=== PATIENT | male | born 1980 | race Caucasian/White ===

== ENCOUNTER 2021-01-08 09:33 | Emergency (ER) | payer SELFPAY ==
[2021-01-08 09:35] VITALS: BP 149/92; PULSE 68; RESP 19; TEMP 36.8; O2SAT 99; BMI 28.6
--- NOTE | 2021-01-08 09:56 | HMH.EDUTC ---
[facility] [place] Disposition Clinical Impression: Acute maxillary sinusitis Qualifiers: Recurrence: non-recurrent Qualified Code(s): J01.00 - Acute maxillary sinusitis, unspecified Otitis Qualifiers: Laterality: right Qualified Code(s): H66.91 - Otitis media, unspecified, right ear Disposition: Home, Self-Care Condition on Discharge: Good Instructions: Sinusitis, DI for Sinusitis, Middle Ear Infection, Sinusitis (Alternative Therapy) Additional Instructions: Start antibiotic patient to take as ordered for a full length of time even if you feel better. Sinus infections do not get better overnight. It may take 2-3 days to notice much improvement so be sure to use conservative measures as discussed for symptoms. Flonase 1 spray each nostril daily to help with nasal congestion, sinus and ear pressure/information Increase fluids Humidifier/vaporizer as needed Tylenol and ibuprofen as needed for fever or pain. If symptoms do not improve or get worse return or be seen in the ER Follow-up with primary care this week Start antibiotic as soon as possible and be sure to take as ordered for full length of time even though he should start feeling better in 24-48 hours. Tylenol or Motrin as needed for pain or fever Encourage fluids, water, Gatorade, Powerade, Pedialyte if /toddler/child Warm compresses often helps when placed over ear Return immediately for new or worsening symptoms no noticeable improvement in 48-72 hours and in 10-14 days to ensure the ears are return to baseline. Follow-up with primary care Prescriptions: Fluticasone Propionate [Flonase 50mcg nasal spray 16gm] 1 spr NS DAILY 14 Days #9.9 ml Transmission Status: Pending to [id number] predniSONE [Prednisone 20mg Tab] 20 mg PO BID #10 tab Transmission Status: Pending to [id number] Azithromycin [Zithromax 250mg tab] 250 mg PO DIRECTED #6 tab Transmission Status: Pending to [id number] Referrals: Provider,Referral, [Primary Care Provider] - Time of Disposition: 10:07 Medical Decision Making - Rajesh Inquiry Pt receiving controlled substance: No Vital Signs: 01/08/21 09:35 Temperature 98.2 F Temperature Source Oral Pulse Rate [Right Brachial] 68 Respiratory Rate 19 Blood Pressure [Right Arm] 149/92 H Blood Pressure Mean [Right Arm] 111 Blood Pressure Source [Right Arm] Automatic Cuff Blood Pressure Position [Right Arm] Sitting 02 Sat by Pulse Oximetry 99 Oxygen Delivery Method Room Air [facility] [place] HPI - General Chief complaint: Urgent [facility] Stated complaint: congestion, cough Time Seen by Provider: 01/08/21 10:00 Mode of Arrival: Ambulatory Source of Information: Patient Limitations: No Limitations Description of Symptoms (Recalled from Triage Doc. by RN): PATIENT C/O CHEST CONGESTION, COUGH WITH YELLOW MUCOUS, AND SOA X 1 WEEK HEENT Symptoms (Recalled from RN notes): Yes Resp Symptoms (Recalled from RN notes): Yes Skin Symptoms (Recalled from RN notes): No MS Symptoms (Recalled from RN notes): No Functional Status (Recalled from RN notes): WNL - History of Present Illness Provider Complaint: 40 yr old male presents for cough,soa, sinus congestion, yellow/green drainage and tiredness. pt states he had covid about 8 wks ago. - Related Data Previous Rx's Medication Instructions Recorded Azithromycin [Zithromax 250mg 250 mg PO DIRECTED #6 tab 01/08/21 tab] Fluticasone Propionate [Flonase 1 spr NS DAILY 14 Days #9.9 ml 01/08/21 50mcg nasal spray 16gm] predniSONE [Prednisone 20mg 20 mg PO BID #10 tab 01/08/21 Tab] Allergies Allergy/AdvReac Type Severity Reaction Status Date / Time cephalexin [From Keflex] Allergy Verified 12/03/18 11:00 - Worker's Comp Is this a Worker's Comp case?: No 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
[2021-01-08 10:09] VITALS: BP 149/92; PULSE 68; RESP 19; TEMP 36.8; O2SAT 99
== END 2021-01-08 10:12 | disposition home or self-care (01) ==
PROVIDERS: Emergency Provider Nurse Practitioner Family
DX: J01.00 Acute maxillary sinusitis, unspecified; I10 Essential (primary) hypertension; F17.210 Nicotine dependence, cigarettes, uncomplicated
CPT/HCPCS: 99202; G0463

== ENCOUNTER 2023-01-20 10:34 | Emergency (ER) | payer OTHER, SELFPAY ==
[2023-01-20 11:00] VITALS: PULSE 83; RESP 18; TEMP 37; O2SAT 98; BMI 30.9
[2023-01-20 11:26] LABS: UTC Strep Screen (Rapid) Negative (Negative)
[2023-01-20 11:27] LABS: UTC Influenza A Antigen Negative (Negative); UTC Influenza B Antigen Negative (Negative)
--- NOTE | 2023-01-20 11:35 | EXP.UTC ---
Discharge Plan Disposition Patient Disposition: Home, Self-Care Condition: Good Prescriptions Prescriptions: New amoxicillin [amoxicillin] 500 mg tablet 500 mg PO BID 10 Days Qty: 20 0RF fluticasone propionate [Flonase Allergy Relief] 50 mcg/actuation spray,suspension 1 spray intranasal DAILY Qty: 16 0RF Rx Instructions: administer into each nostril Referrals Follow up/Referrals: Provider,Referral, MD [Primary Care Provider] - See instructions Activity Restrictions/Add. Instructions Additional Instructions/Restrictions: Start antibiotic patient to take as ordered for a full length of time even if you feel better. Sinus infections do not get better overnight. It may take 2-3 days to notice much improvement so be sure to use conservative measures as discussed for symptoms. Flonase 1 spray each nostril daily to help with nasal congestion, sinus and ear pressure/information Increase fluids Humidifier/vaporizer as needed Tylenol and ibuprofen as needed for fever or pain. If symptoms do not improve or get worse return or be seen in the ER Follow-up with primary care this week Clinical Impressions Clinical Impression: Acute maxillary sinusitis Qualifiers: Recurrence: recurrent Qualified Code(s): J01.01 - Acute recurrent maxillary sinusitis Instructions Patient Instructions: DI for Sinusitis, Sinusitis Discharge ED Provider: Mohini ([facility])Cait [facility] [place] HPI General Stated complaint: sinus pressure, cough, body aches Mode of Arrival: Ambulatory Source of Information: Patient Limitations: No Limitations Time Seen by Provider: 01/20/23 11:35 Description of Symptoms (Recalled from Triage Doc. by RN): cough, sinus pressure, and body aches HEENT Symptoms (Recalled from RN notes): Yes Resp Symptoms (Recalled from RN notes): No Skin Symptoms (Recalled from RN notes): No MS Symptoms (Recalled from RN notes): No Functional Status (Recalled from RN notes): n/a History of Present Illness Provider Complaint: 42 yr old male presents for sinus pressure,congestion,body aches and sinus pain for 2 weeks Related Data Previous Rx's Medication Instructions Recorded amoxicillin 500 mg tablet 500 mg PO BID 10 days #20 tabs 01/20/23 fluticasone propionate 50 1 spray intranasal DAILY #16 grams 01/20/23 mcg/actuation nasal spray,suspension (Flonase Allergy Relief) Allergies Allergy/AdvReac Type Severity Reaction Status Date / Time cephalexin [From Keflex] Allergy Verified 01/20/23 11:12 Worker's Comp Is this a Worker's Comp case?: No [facility] Disclaimer: The information contained in this section may have been updated after the patient was seen, as this information can be updated by other users. 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) Smoking Status: Current every day smoker alcohol intake: never current occupational status: employed Travel in the last 8 weeks: None household members: family housing: house ROS Obtained: Yes All systems reviewed & no additional complaints except as documented Constitutional Constitutional: Reports system reviewed and no additional complaints, except as documented Eyes Eyes: Reports system reviewed and no additional complaints, except as documented ENT Ears, Nose, Mouth, and Throat: Reports system reviewed and no additional complaints, except as documented, Reports as per HPI, Reports otalgia, Reports nasal congestion, Reports post nasal drip, Reports sinus pain, Reports sinus pressure and Reports sore throat Cardiovascular Cardiovascular: Reports system reviewed and no additional complaints, except as documented Respiratory Respiratory: Reports system reviewed and no additional complaints, except as documented Gastrointestinal Gastrointestingal: Reports system reviewed and no additional complaints, except as documented Musculoskeletal Musculoskeletal: Reports system reviewed and no additional complaints, except as docu
[2023-01-20 12:00] VITALS: BP 0/0; PULSE 83; RESP 18; TEMP 37; O2SAT 98
== END 2023-01-20 12:00 | disposition home or self-care (01) ==
PROVIDERS: Emergency Provider Nurse Practitioner Family
DX: J01.01 Acute recurrent maxillary sinusitis (principal); F17.210 Nicotine dependence, cigarettes, uncomplicated
CPT/HCPCS: 87804; 87880; 99212; 99214; G0463

== ENCOUNTER 2023-02-20 13:17 | Emergency (ER) | payer OTHER, SELFPAY ==
[2023-02-20 13:40] VITALS: PULSE 95; RESP 18; TEMP 36.9; O2SAT 97; BMI 30.2
--- NOTE | 2023-02-20 13:46 | EXP.UTC ---
Discharge Plan Disposition Patient Disposition: Home, Self-Care Condition: Good Prescriptions Prescriptions: New methylprednisolone 4 mg Tablets,Dose Pack 4 mg PO DIRECTED Qty: 21 0RF amoxicillin-pot clavulanate 875-125 mg Tablet 1 tab PO Q12H Qty: 20 0RF guaifenesin [Mucinex] 600 mg tablet extended release 12hr 600 - 1,200 mg PO BIDP PRN (Reason: Congestion) Qty: 30 0RF No Action amoxicillin [amoxicillin] 500 mg tablet 500 mg PO BID 10 Days Qty: 20 0RF fluticasone propionate [Flonase Allergy Relief] 50 mcg/actuation spray,suspension 1 spray intranasal DAILY Qty: 16 0RF Rx Instructions: administer into each nostril Referrals Follow up/Referrals: Provider,Referral, MD [Primary Care Provider] - See instructions Activity Restrictions/Add. Instructions Additional Instructions/Restrictions: Drink plenty of fluids. Take tylenol or ibuprofen for pain or fever. Take the medications as directed. Follow up with your regular doctor. GO TO THE ER FOR ANY WORSENING SYMPTOMS Clinical Impressions Clinical Impression: Strep pharyngitis Stand Alone Forms Stand Alone Forms: Work/School Release Instructions Patient Instructions: Strep Throat, DI for Strep Throat Discharge ED Provider: Jea nPaul Arias [facility] General Stated complaint: sinus pressure, neck pain, headache Time Seen by Provider: 02/20/23 13:48 History of Present Illness Provider Complaint: He states that for the past 3 days he has had worsening sore throat, sinus congestion, and malaise. Related Data Previous Rx's Medication Instructions Recorded amoxicillin 500 mg tablet 500 mg PO BID 10 days #20 tabs 01/20/23 fluticasone propionate 50 1 spray intranasal DAILY #16 grams 01/20/23 mcg/actuation nasal spray,suspension (Flonase Allergy Relief) amoxicillin 875 mg-potassium 1 tab PO Q12H #20 tabs 02/20/23 clavulanate 125 mg tablet guaifenesin 600 mg tablet, 600 - 1,200 mg PO BIDP PRN 02/20/23 extended release 12 hr (Mucinex) Congestion #30 tabs methylprednisolone 4 mg tablets in 4 mg PO DIRECTED #21 tabs 02/20/23 a dose pack Allergies Allergy/AdvReac Type Severity Reaction Status Date / Time cephalexin [From Keflex] Allergy Verified 01/20/23 11:12 [facility] Disclaimer: The information contained in this section may have been updated after the patient was seen, as this information can be updated by other users. 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: Current every day smoker alcohol intake: never current occupational status: employed Travel in the last 8 weeks: None household members: family housing: house ROS Obtained: Yes All systems reviewed & no additional complaints except as documented Constitutional Constitutional: Reports chills and Reports fever(s) Eyes Eyes: Denies eye discharge ENT Ears, Nose, Mouth, and Throat: Reports as per HPI Cardiovascular Cardiovascular: Denies chest pain Respiratory Respiratory: Denies chest congestion and Reports cough Gastrointestinal Gastrointestingal: Reports nausea; Denies abdominal pain, constipation, cramping, diarrhea or vomiting Musculoskeletal Musculoskeletal: Denies arthralgias Integumentary/Breasts Skin/Breast: Denies rash Neurologic Neurologic: Denies paresthesias Physical Exam General General appearance: alert and in no apparent distress Head Head exam: atraumatic, normocephalic and normal inspection Eye Eye exam: Present normal appearance, PERRL and EOMI ENT ENT exam: Present mucous membranes moist and normal external ear exam Expanded ENT Exam TM/Canal exam: Bilateral TM: erythema and bulging Nose exam: Absent sinus tenderness Mouth exam: Present normal external inspection; Absent drooling Teeth exam: Present normal inspection Throat exam: Present tonsillar erythema, tonsillomegaly and tonsillar exudate Neck Neck exam: Present normal inspection, full
[2023-02-20 14:14] LABS: UTC Strep Screen (Rapid) Positive (Negative)
[2023-02-20 14:45] VITALS: BP 0/0; PULSE 95; RESP 18; TEMP 36.9; O2SAT 97
== END 2023-02-20 14:45 | disposition home or self-care (01) ==
PROVIDERS: Emergency Provider Nurse Practitioner Family
DX: J02.0 Streptococcal pharyngitis (principal); M54.2 Cervicalgia; R07.0 Pain in throat; R51.9 Headache, unspecified; R09.81 Nasal congestion; R53.81 Other malaise; F17.210 Nicotine dependence, cigarettes, uncomplicated
CPT/HCPCS: 87880; 99212; 99214; G0463

== ENCOUNTER 2023-07-27 08:56 | Emergency (ER) | payer OTHER, BC, SELFPAY ==
[2023-07-27 09:40] VITALS: BP 185/119; PULSE 98; RESP 20; TEMP 36.9; O2SAT 96; BMI 31.1
--- NOTE | 2023-07-27 09:45 | EXP.UTC ---
Discharge Plan Disposition Patient Disposition: Home, Self-Care Condition: Good Prescriptions Prescriptions: New methylprednisolone [Medrol (Major)] 4 mg tablets,dose pack See Rx Instructions .Route .COMPLEX 6 Days Qty: 21 0RF Rx Instructions: taper pack; amoxicillin-pot clavulanate 875-125 mg Tablet 1 tab PO Q12H Qty: 20 0RF guaifenesin [Mucinex] 600 mg tablet extended release 12hr 1,200 mg PO BID PRN (Reason: cough) Qty: 20 0RF No Action amoxicillin [amoxicillin] 500 mg tablet 500 mg PO BID 10 Days Qty: 20 0RF fluticasone propionate [Flonase Allergy Relief] 50 mcg/actuation spray,suspension 1 spray intranasal DAILY Qty: 16 0RF Rx Instructions: administer into each nostril methylprednisolone 4 mg Tablets,Dose Pack 4 mg PO DIRECTED Qty: 21 0RF amoxicillin-pot clavulanate 875-125 mg Tablet 1 tab PO Q12H Qty: 20 0RF guaifenesin [Mucinex] 600 mg tablet extended release 12hr 600 - 1,200 mg PO BIDP PRN (Reason: Congestion) Qty: 30 0RF Referrals Follow up/Referrals: Geoffrey Duron [Primary Care Provider] - See instructions Activity Restrictions/Add. Instructions Additional Instructions/Restrictions: *Monitor Temp, Over the counter Motrin or Tylenol as directed/as needed Tylenol every 4 hours and Motrin every 6 hours (as long as your family doctor has told you that you can take it) for fever or pain. and straight to ER if unable to lower temp less than 101.0 after medication given *Warm salt water gargles may help to soothe the throat *Throat Lozenges? *Warm fluids like tea with honey may help to soothe the throat? *Sleep elevated *Humidifier/Vaporizer Take medication as prescribed Follow up IMMEDIATELY for new or worsening symptoms or no Noticeable improvement over the next 48-72 hours. 911 for difficulty breathing or swallowing Clinical Impressions Clinical Impression: Sinusitis Qualifiers: Sinusitis location: unspecified location Chronicity: unspecified Qualified Code(s): J32.9 - Chronic sinusitis, unspecified Instructions Patient Instructions: Sinusitis, DI for Sinusitis Discharge ED Provider: Carri Perez [facility] [place] [place] HPI General Stated complaint: chest and head congestion Time Seen by Provider: 07/27/23 09:45 History of Present Illness Provider Complaint: Patient states that he started several days ago with sinus congestion and pressure now feels like it is trying to move into his chest States that he is having pain and pressure in his sinus area and drainage in the back of his throat States that he has taken OTC medications but not helped Related Data Previous Rx's Medication Instructions Recorded amoxicillin 500 mg tablet 500 mg PO BID 10 days #20 tabs 01/20/23 fluticasone propionate 50 1 spray intranasal DAILY #16 grams 01/20/23 mcg/actuation nasal spray,suspension (Flonase Allergy Relief) amoxicillin 875 mg-potassium 1 tab PO Q12H #20 tabs 02/20/23 clavulanate 125 mg tablet guaifenesin 600 mg tablet, 600 - 1,200 mg (1 - 2 x 600 mg) PO 02/20/23 extended release 12 hr (Mucinex) BIDP PRN Congestion #30 tabs methylprednisolone 4 mg tablets in 4 mg PO DIRECTED #21 tabs 02/20/23 a dose pack amoxicillin 875 mg-potassium 1 tab PO Q12H #20 tabs 07/27/23 clavulanate 125 mg tablet guaifenesin 600 mg tablet, 1,200 mg (2 x 600 mg) PO BID PRN 07/27/23 extended release 12 hr (Mucinex) cough #20 tabs methylprednisolone 4 mg tablets in See Rx Instructions .Route 07/27/23 a dose pack (Medrol (Major)) .COMPLEX 6 days #21 tabs Allergies Allergy/AdvReac Type Severity Reaction Status Date / Time cephalexin [From Keflex] AdvReac Unknown Diarrhea Verified 07/27/23 09:48 [facility] Disclaimer: The information contained in this section may have been updated after the patient was seen, as this information can be updated by other users. 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 smoker alcohol intake: never current occupational status: employed Travel in the last 8 weeks: None household members: family housing: house ROS Obtained: Yes All systems reviewed & no additional complaints except as documented and Yes Systems reviewed as appropriate & no additional complaints except as documented Constitutional Constitutional: Reports system reviewed and no additional complaints, except as documented and Reports as per HPI ENT Ears, Nose, Mouth, and Throat: Reports system reviewed and no additional complaints, except as documented, Reports as per HPI, Reports sinus pain and Reports sinus pressure Cardiovascular Cardiovascular: Reports system reviewed and no additional complaints, except as documented and Reports as per HPI Respiratory Respiratory: Reports system reviewed and no additional complaints, except as documented, Reports as per HPI, Denies shortness of breath, Reports chest congestion, Reports cough and Denies wheezing Gastrointestinal Gastrointestingal: Reports system reviewed and no additional complaints, except as documented and as per HPI Allergic/Immunologic Allergic/Immunologic: Denies wheezing Physical Exam General General appearance: alert and in no apparent distress ENT ENT exam: Present mucous membranes moist Expanded ENT Exam Nose exam: Present sinus tenderness Throat exam: Present other (PND noted) Respiratory Respiratory exam: Present normal lung sounds bilaterally; Absent respiratory distress or wheezes Cardiovascular Cardiovascular exam: Present regular rate, normal rhythm and normal heart sounds Neurological Exam Neurological exam: Present alert, oriented X3 and normal gait Medical Decision Making Rajesh Inquiry Pt receiving controlled substance: No Rajesh was queried for this patient: No Medical Decision Narrative: Patient blood pressure elevated discussed transfer to the ED for further evaluation and/or medication and he declined agreed to follow up with PCP for re-evaluation states it is high when he feels bad or hurting
[2023-07-27 10:01] VITALS: BP 174/112; PULSE 98; RESP 20; TEMP 36.9; O2SAT 96
== END 2023-07-27 10:06 | disposition home or self-care (01) ==
PROVIDERS: Emergency Provider Nurse Practitioner; PCP Internal Medicine
DX: J01.90 Acute sinusitis, unspecified (principal); R09.82 Postnasal drip; R09.81 Nasal congestion
CPT/HCPCS: 99212; 99214; G0463

== ENCOUNTER 2023-08-19 09:37 | Emergency (ER) | payer OTHER, BC, SELFPAY ==
[2023-08-19 10:10] VITALS: BP 164/89; PULSE 92; RESP 21; TEMP 36.7; O2SAT 97; BMI 30.4
--- NOTE | 2023-08-19 10:53 | ED_ITS ---
Discharge Plan Disposition Patient Disposition: Home, Self-Care Condition: Good Prescriptions Prescriptions: New azithromycin 250 mg tablet 250 mg PO DIRECTED Qty: 6 0RF Rx Instructions: Take two (2) tablets on day #1, then one (1) tablet day #2 thru #5 nicotine 21-14-7 mg/24 hr patch, TD daily, sequential See Rx Instructions .ROUTE .COMPLEX Qty: 56 0RF Rx Instructions: apply 1-21 mg NICOTINE PATCH daily for 28 days; follow with 1-14 mg PATCH daily for 14 days, then 1-7mg PATCH daily for 14 days Referrals Follow up/Referrals: Geoffrey Duron [Primary Care Provider] - See instructions Activity Restrictions/Add. Instructions Additional Instructions/Restrictions: Start antibiotic patient to take as ordered for a full length of time even if you feel better. Sinus infections do not get better overnight. It may take 2-3 days to notice much improvement so be sure to use conservative measures as discussed for symptoms. Flonase 1 spray each nostril daily to help with nasal congestion, sinus and ear pressure/information Increase fluids Humidifier/vaporizer as needed Tylenol and ibuprofen as needed for fever or pain. If symptoms do not improve or get worse return or be seen in the ER Follow-up with primary care this week Clinical Impressions Clinical Impression: Sinusitis Instructions Patient Instructions: DI for Sinusitis Discharge ED Provider: Mohini ([facility])Cait [facility] [place] HPI General Stated complaint: congestion, head pressure Mode of Arrival: Ambulatory Source of Information: Patient Limitations: No Limitations Time Seen by Provider: 08/19/23 10:53 Description of Symptoms (Recalled from Triage Doc. by RN): Pt's symptoms are chest congestion, and cough. HEENT Symptoms (Recalled from RN notes): Yes Resp Symptoms (Recalled from RN notes): No Skin Symptoms (Recalled from RN notes): No MS Symptoms (Recalled from RN notes): No Functional Status (Recalled from RN notes): n/a History of Present Illness Provider Complaint: 42 yr old male presents for cough, chest congestion, sinus pressure, thick dark yellow drainage, sinus tenderness. pt also wants nicotine patches to help him quit smoking Related Data Previous Rx's Medication Instructions Recorded azithromycin 250 mg tablet 250 mg PO DIRECTED #6 tabs 08/19/23 nicotine See Rx Instructions transdermal 08/19/23 21mg/24hr-14mg/24hr-7mg/24hr daily .COMPLEX #56 patches transderm patches,sequentl Allergies Allergy/AdvReac Type Severity Reaction Status Date / Time cephalexin [From Keflex] AdvReac Unknown Diarrhea Verified 08/19/23 10:42 Worker's Comp Is this a Worker's Comp case?: No [facility] Disclaimer: The information contained in this section may have been updated after the patient was seen, as this information can be updated by other users. 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) Smoking Status: Current every day smoker alcohol intake: never current occupational status: employed Travel in the last 8 weeks: None household members: family housing: house ROS Obtained: Yes All systems reviewed & no additional complaints except as documented Constitutional Constitutional: Reports system reviewed and no additional complaints, except as documented and Reports as per HPI Eyes Eyes: Reports system reviewed and no additional complaints, except as documented ENT Ears, Nose, Mouth, and Throat: Reports system reviewed and no additional complaints, except as documented, Reports as per HPI, Reports nasal congestion, Reports nasal discharge, Reports post nasal drip, Reports sinus pain and Reports sinus pressure Cardiovascular Cardiovascular: Reports system reviewed and no additional complaints, except as documented Respiratory Respiratory: Reports system reviewed and no additional complaints, except as documented, Reports as per HPI, Reports chest congestion and Reports cough Integumentary/Breasts Skin/Breast: Reports system reviewed and no additional complaints, except as documented Neurologic Neurologic: Reports system reviewed and no additional complaints, except as documented Endocrine Endocrine: Reports system reviewed and no additional complaints, except as documented Hematologic/Lymphatic Henatologic/Lymphatic: Reports system reviewed and no additional complaints, except as documented Allergic/Immunologic Allergic/Immunologic: Reports system reviewed and no additional complaints, except as documented Physical Exam General General appearance: alert and in no apparent distress Head Head exam: atraumatic Eye Eye exam: Present normal appearance ENT ENT exam: Present mucous membranes moist and TM's normal bilaterally Expanded ENT Exam Nose exam: Present sinus tenderness Respiratory Respiratory exam: Present normal lung sounds bilaterally Cardiovascular Cardiovascular exam: Present regular rate and normal rhythm Neurological Exam Neurological exam: Present alert and oriented X3 Skin Skin exam: Present warm and intact Medical Decision Making Medical Records Medical records reviewed: Yes I reviewed the patient's medical records. Rajesh Inquiry Pt receiving controlled substance: No Rajesh was queried for this patient: No Vital Signs: 08/19/23 10:10 Temperature 98.1 F Temperature Source Oral Pulse Rate [Right Radial] 92 H Respiratory Rate 21 Blood Pressure [Right Arm] 164/89 H Blood Pressure Mean [Right Arm] 114 Blood Pressure Source [Right Arm] Automatic Cuff Blood Pressure Position [Right Arm] Sitting 02 Sat by Pulse Oximetry 97 Oxygen Delivery Method Room Air Lab Data Lab results reviewed: Yes I reviewed the patient's lab results.
[2023-08-19 11:03] LABS: UTC Strep Screen (Rapid) Negative (Negative)
[2023-08-19 11:09] VITALS: BP 164/89; PULSE 92; RESP 21; TEMP 36.7; O2SAT 97
== END 2023-08-19 11:09 | disposition home or self-care (01) ==
PROVIDERS: Emergency Provider Nurse Practitioner Family; PCP Internal Medicine
DX: J01.90 Acute sinusitis, unspecified (principal); R05.9 Cough, unspecified; R09.81 Nasal congestion; F17.210 Nicotine dependence, cigarettes, uncomplicated
CPT/HCPCS: 87880; 99212; 99214; G0463

== ENCOUNTER 2023-11-18 13:01 | Emergency (ER) | payer OTHER, BC, SELFPAY ==
[2023-11-18 13:26] VITALS: BP 180/126; PULSE 104; RESP 18; TEMP 36.7; O2SAT 94; BMI 30.5
--- NOTE | 2023-11-18 13:49 | EXP.UTC ---
Discharge Plan Disposition Patient Disposition: Home, Self-Care Condition: Good Prescriptions Prescriptions: New azithromycin [Zithromax] 250 mg tablet 250 mg PO UD DOSE PK Qty: 6 0RF Rx Instructions: Take two (2) tablets today, then one (1) tablet days #2 thru #5 benzonatate 100 mg capsule 100 mg PO TIDP PRN (Reason: Cough) Qty: 30 0RF methylprednisolone 4 mg Tablets,Dose Pack 4 mg PO DIRECTED 6 Days Qty: 21 0RF Rx Instructions: Take 1 pack as directed for 6 days Referrals Follow up/Referrals: Geoffrey Duron [Primary Care Provider] - See instructions Activity Restrictions/Add. Instructions Additional Instructions/Restrictions: Drink plenty of fluids. Take tylenol or ibuprofen for pain or fever. Take the medications as directed. Follow up with your regular doctor. GO TO THE ER FOR ANY WORSENING SYMPTOMS YOU HAVE TO FOLLOW UP WITH YOUR PRIMARY CARE PHYSICIAN REGARDING YOUR ELEVATED BLOOD PRESSURE Clinical Impressions Clinical Impression: Acute bronchitis Sinusitis Qualifiers: Sinusitis location: unspecified location Chronicity: unspecified Qualified Code(s): J32.9 - Chronic sinusitis, unspecified Stand Alone Forms Stand Alone Forms: Work/School Release Instructions Patient Instructions: DI for Sinusitis, DI for Acute Bronchitis Print Language Print Language: Uruguayan Discharge ED Provider: Jean Paul Arias [facility] General Stated complaint: chest congestion, fever Mode of Arrival: Ambulatory Source of Information: Patient Limitations: No Limitations Time Seen by Provider: 11/18/23 13:49 Description of Symptoms (Recalled from Triage Doc. by RN): pt reports cough, chest congestion x3 weeks. Pt reports feeling SOA HEENT Symptoms (Recalled from RN notes): No Resp Symptoms (Recalled from RN notes): Yes (pt reports feeling SOA, cough, chest congestion) Skin Symptoms (Recalled from RN notes): No MS Symptoms (Recalled from RN notes): No Functional Status (Recalled from RN notes): n/a History of Present Illness Provider Complaint: He states that for the past 3 weeks he has had sinus congestion, chest congestion, and scratchy throat. Related Data Previous Rx's ?Medication ?Instructions ?Recorded azithromycin 250 mg tablet 250 mg PO UD DOSE PK #6 tabs 11/18/23 (Zithromax) benzonatate 100 mg capsule 100 mg PO TIDP PRN Cough #30 caps 11/18/23 methylprednisolone 4 mg tablets in 4 mg PO DIRECTED 6 days #21 tabs 11/18/23 a dose pack Allergies Allergy/AdvReac Type Severity Reaction Status Date / Time cephalexin [From Keflex] AdvReac Unknown Diarrhea Verified 08/19/23 10:42 Worker's Comp Is this a Worker's Comp case?: No [facility] Disclaimer: The information contained in this section may have been updated after the patient was seen, as this information can be updated by other users. 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 (Reviewed 08/19/23 @ 10:54 by Cait Rajan ([facility]), AMBULATORY CARE NURSE) Migraine Hypertension 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 (Reviewed 08/19/23 @ 10:54 by Cait Rajan ([facility]), AMBULATORY CARE NURSE) Smoking Status: Current every day smoker alcohol intake: never current occupational status: employed Travel in the last 8 weeks: None household members: family housing: house ROS Obtained: Yes All systems reviewed & no additional complaints except as documented Constitutional Constitutional: Reports poor appetite Eyes Eyes: Reports system reviewed and no additional complaints, except as documented ENT Ears, Nose, Mouth, and Throat: Reports as per HPI Cardiovascular Cardiovascular: Reports system reviewed and no additional complaints, except as documented and Denies chest pain Respiratory Respiratory: Denies shortness of breath, Reports chest congestion, Reports cough, Denies stridor and Denies wheezing Gastrointestinal Gastrointestingal: Reports system reviewed and no additional complaints, except as documented; Denies abdominal pain, diarrhea or vomiting Musculoskelet
--- NOTE | 2023-11-18 14:02 | PC.NURSE ---
1335-provider notified of pt bp. pt reports that is what his bp normally runs.
[2023-11-18 14:05] VITALS: BP 182/127; PULSE 101; RESP 18; TEMP 36.7; O2SAT 94
== END 2023-11-18 14:05 | disposition home or self-care (01) ==
PROVIDERS: Emergency Provider Nurse Practitioner Family; PCP Internal Medicine
DX: J20.9 Acute bronchitis, unspecified (principal); J01.90 Acute sinusitis, unspecified; R50.9 Fever, unspecified; R07.0 Pain in throat
CPT/HCPCS: 99212; 99214; G0463

== ENCOUNTER 2024-03-02 12:59 | Emergency (ER) | payer OTHER, SELFPAY ==
--- OUTSIDE RECORDS SUMMARY | 2024-03-02 13:02 | XMS_ITS | Encounter Summary ---
[facility] Address [address] [place] [address] Care Team Providers Care Modular Home Crew Member Name Role Phone Kinga Peace LESLIE Primary Care Provider [phone] Encounter Details Date Type Department Care Team (Late st Contact Info) Description 10/12/2017 Telephone [facility] [address] [facility] [address] [place] [address] Clair Turpin MA 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 Tobacco Use Types Packs/Day Years Used Date Smoking Tobacco: Former Comments:quit 1 year ago Alcohol Use Standard Drinks/Week Comments No 0 (1 standard drink = 0.6 oz pur e alcohol) Sex and Gender Information Value Date Recorded Sex Assigned at Not on file Legal Sex Male 10:25 AM EDT Gender Identity Not on file Sexual Orientation Not on file documented as of this encounter Miscellaneous Notes * Telephone Encounter - Clair Turpin CMA - 10/12/2017 12:38 PM EDT LMTCB * Telephone Encounter - Belinda Simpson PA-C - 10/12/2017 12:08 PM EDT Pt is on bactrim - should be helping - call pt and see if better - if worse - ER documented in this encounter Plan of Treatment Not on file documented as of this encounter Visit Diagnoses Not on filedocumented in this encounter Additional Health Concerns Infection Onset Date Last Indicated Resolved Time MRSA 10/09/2017 10/09/2017 documented as of this encounter Care Teams Modular Home Crew Member Relationship Specialty Start Date End Date Kinga Peace, HUMAN RESOURCES DESIGNATE [address] [address] PCP - General 05/03/15 documented as of this encounter
--- OUTSIDE RECORDS SUMMARY | 2024-03-02 13:02 | XMS_ITS | Encounter Summary ---
Author Organization [facility] Address [address] [place] [address] Care Team Providers Care Store Warehouse Associate Name Role Phone Kinga Peace LESLIE Primary Care Provider [phone] Reason for Visit * Reason Comments Wound Infection puss filled. popped to day . looks infected. painful. left side of groin . Encounter Details Date Type Department Care Team (Latest Contact Info) Description 10/09/2017 4:12 PM EDT - 10/09/2017 4:51 PM EDT Hospital Encounter [facility] - [address] [place] [id number] Galina Simpson PA-C Abscess (Primary Dx) Discharge Disposition: Home or Self Care 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 Tobacco Use Types Packs/Day Years [...] on file documented as of this encounter Last Filed Vital Signs Vital Sign Reading Time Taken Comments Blood Pressure 136/87 10/09/2017 4:16 PM EDT Pulse 97 10/09/2017 4:16 PM EDT Temperature 37.1 ??C (98.7 ??F) 10/09/2017 4:16 PM ED T Respiratory Rate 18 10/09/2017 4:16 PM EDT Oxygen Saturation 99% 10/09/2017 4:16 PM EDT Inhaled Oxygen Concentration - - Weight 93 kg (205 lb) 10/09/2017 4:16 PM EDT Height - - Body Mass Index 27.8 03/29/2017 2:54 PM EST documented in this encounter Discharge Instructions * Attachments The following attachments cannot be sent through Care Everywhere. * Incision and Drainage Care After (Cymro) * Skin Abscess Cuct-hw-Yajz (Cymro) documented in this encounter Medications at Time of Discharge sulfamethoxazole- trimethoprim (BACTRIM DS,SEPTRA DS) 800-160 MG per tabletIndications :Abscess Take 1 tablet by mouth 2 (Two) Times a Day for 10 days. 20 tablet 10/09/2017 10/19/2017 documented as of this encounter ED Notes * Galina Simpson PA-C - 10/09/2017 4:29 PM EDTAssociated Order(s): ED INCISION AND DRAINAGE Post-Procedure Diagnose(s): Abscess Chief Complaint Patient presents with ??? Wound Infection puss filled. popped to day . looks infected. painful. left side of groin . BP 136/87 (BP Location: Right arm, Patient Position: Sitting) Pulse 97 Temp 98.7 ??F (37.1 ??C)(Temporal Artery ) Resp 18 Wt 93 kg (205 lb) SpO2 99% BMI 27.80 kg/m?? History provided by: Patient Wound Infection Location: Left groin Severity: Moderate Onset quality: Sudden Duration: 2 days Timing: Constant Progression: Worsening Chronicity: New Context: Pt noticed an area on the left groin was tender and became worse over the course of his shift - he then noticied oozing around 6 am Relieved by: Nothing Worsened by: Sweating Ineffective treatments: Bandage Associated symptoms: no fever Allergies Allergen Reactions ??? Keflex [Cephalexin] GI Intolerance diarrhea Past 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: Diagnosis Date ??? Dermatitis ??? Migraine No LMP for male patient. Past Surgical History: Procedure Laterality Date ??? SHOULDER SURGERY 4 surgeries on right shoulder, [id number] surgeries on left shoulder, [id number] 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 ??? Marital status: 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 Main Topics ??? Smoking status: Former Smoker Comment: quit 1 year ago ??? Alcohol use No ??? Drug use: Unknown Other Topics Concern ??? Not on file Review of Systems Constitutional: Negative for fever. Physical Exam Constitutional: He is oriented to person, place, and time. He appears well- developed and well-nourished. HENT: Head: Normocephalic and atraumatic. Right Ear: External ear normal. Left Ear: External ear normal. Nose: Nose normal. Mouth/Throat: Oropharynx is clear and moist. Eyes: EOM are normal. Pupils are equal, round, and reactive to light. Neurological: He is alert and oriented to person, place, and time. Skin: Skin is warm and dry. Psychiatric: He has a normal mood and affect. His behavior is normal. Judgment and thought content normal. Nursing note and vitals reviewed. No orders to display Labs Reviewed WOUND CULTURE - Abnormal; Notable for the following: Result Value Wound Culture Light growth (2+) Staphylococcus aureus (*) All other components within normal limits Problem List Items Addressed This Visit None Visit Diagnoses Abscess - Primary Relevant Medications sulfamethoxazole-trimethoprim (BACTRIM DS,SEPTRA DS) 800-160 MG per tablet Other Relevant Orders Wound Culture - Wound, Groin (Completed) Incision & Drainage (Completed) Incision & Drainage Date/Time: 10/09/2017 4:42 PM Performed by: GALINA SIMPSON Authorized by: GALINA SIMPSON Consent: Consent obtained: Verbal Consent given by: Patient Risks discussed: Bleeding, incomplete drainage and pain Alternatives discussed: No treatment Location: Type: Abscess Location: left ingunial region. Pre-procedure details: Skin preparation: Hibiclens Anesthesia (see MAR for exact dosages): Anesthesia method: None Procedure details: Drainage: Purulent Drainage amount: Scant Wound treatment: Wound left open Post-procedure details: Patient tolerance of procedure: Tolerated well, no immediate complications Medications cefTRIAXone (ROCEPHIN) injection 1,000 mg (1,000 mg Intramuscular Given 10/09/17 1637) Medication List START taking these medications sulfamethoxazole-trimethoprim 800-160 MG per tablet Commonly known as: BACTRIM DS,SEPTRA DS Take 1 tablet by mouth 2 (Two) Times a Day for 10 days. STOP taking these medications benzonatate 200 MG capsule Commonly known as: TESSALON Please follow up with your PMD in 2-3 days as needed or return to urgent care if needed sooner. If you feel you need immediate care - go to your closest emergency room. Galina Simpson PA-C 10/09/17 1643 Galina Simpson PA-C 10/12/17 0911 documented in this encounter Plan of Treatment Not on file documented as of this encounter Procedures Procedure Name Priority Date/Time Associated Diagnosis Comments WOUND CULTURE STAT 10/09/2017 4:35 PM EDT Abscess RI INCISION & DRAINAGE ABSCESS SIMPLE/SINGLE Routine 10/09/2017 4:29 PM EDT Abscess documented in this encounter Results * (ABNORMAL) Wound Culture - Wound, Groin (10/09/2017 4:35 PM EDT) Wound Culture Light growth (2+) Staphylococcus aureus, MRSA(A) NELLA 10/12/2017 1:02 PM EDT [facility] Comment: Methicillin resistant Staphylococcus aureus, Patient may be an isolation risk. This isolate does not demonstrate inducible clindamycin resistance in vitro. Gram Stain Few (2+) WBCs seen 10/12/2017 1:02 PM EDT [facility] Gram Stain Rare (1+) Gram positive cocci in pairs 10/12/2017 1:02 PM EDT [facility] Gram Stain Rare (1+) Gram positive bacilli 10/12/2017 1:02 PM EDT [facility] Wound Swab of groin / Unknown Collection / Unknown 10/09/2017 4:35 PM EDT 10/09/2017 4:36 PM EDT Narrative Organism Antibiotic Method Susceptibility Staphylococcus aureus, MRSA Clindamycin NELLA <=0.5 ug/ml: Susceptible Staphylococcus aureus, MRSA Daptomycin NELLA <=0.5 ug/ml: Susceptible Staphylococcus aureus, MRSA Erythromycin NELLA >4 ug/ml: Resistant Staphylococcus aureus, MRSA Gentamicin NELLA <=4 ug/ml: Susceptible Staphylococcus aureus, MRSA Levofloxacin NELLA <=1 ug/ml: Susceptible Comment:Staphylococc us species may develop resistance during prolonged therapy with quinolones. Isolates that are initially susceptible may become resistant within three to four days after initiation of therapy. Testing of repeat isolates may be warranted. Staphylococcus aureus, MRSA Linezolid NELLA 2 ug/ml: Susceptible Staphylococcus aureus, MRSA Oxacillin NELLA >2 ug/ml: Resistant Staphylococcus aureus, MRSA Penicillin G NELLA >8 ug/ml: Resistant Staphylococcus aureus, MRSA Quinupristin + Dalfopristin NELLA <=0.5 ug/ml: Susceptible Staphylococcus aureus, MRSA Rifampin NELLA <=1 ug/ml: Susceptible Staphylococcus aureus, MRSA Tetracycline NELLA <=4 ug/ml: Susceptible Staphylococcus aureus, MRSA Trimethoprim + Sulfamethoxazole NELLA <=0.5/9.5 ug/ml: Susceptible Staphylococcus aureus, MRSA Vancomycin NELLA 2 ug/ml: Susceptible Galina Simpson PA-C [facility]Y - [facility] ORDERABLES Final Result [facility]
[address] [place] [address], * RI INCISION & DRAINAGE ABSCESS SIMPLE/SINGLE (10/09/2017 4:29 PM EDT) Narrative Galina Simpson PA-C - 10/09/2017 4:29 PM EDT Galina Simpson PA-C ? 10/09/2017 ??4:43 PM Incision & Drainage Date/Time: 10/09/2017 4:42 PM Performed by: GALINA SIMPSON Authorized by: GALINA SIMPSON Consent: ??Consent obtained: ??Verbal ??Consent given by: ??Patient ??Risks discussed: ??Bleeding, incomplete drainage and pain ??Alternatives discussed: ??No treatment Location: ??Type: ??Abscess ??Location: left ingunial region. Pre-procedure details: ??Skin preparation: ??Hibiclens Anesthesia (see MAR for exact dosages): ??Anesthesia method: ??None Procedure details: ??Drainage: ??Purulent ??Drainage amount: ??Scant ??Wound treatment: ??Wound left open Post-procedure details: ??Patient tolerance of procedure: ??Tolerated well, no immediate complications us Galina Simpson PA-C PROCEDURE/MINOR SURGI RITIKA ORDERABLES Final Result documented in this encounter Visit Diagnoses Diagnosis Abscess- Primary Cellulitis and abscess of unspecified site documented in this encounter Administered Medications Inactive Administered Medications - up to 3 most recent administrations Medication Order MAR Action Action Date Dose Rate Site cefTRIAXone (ROCEPHIN) injection 1,000 mg 1,000 mg, Intramuscular, Once, On Sun10/09/17 at 1636, For 1 dose, Caution: Look alike/sound alike drug alert, Indications: Skin and Soft Tissue InfectionIndications:Sk in and Soft Tissue Infection Given 10/09/2017 4:37 PM EDT 1,000 mg Right Dorsogluteal documented in this encounter Active and Recently Administered Medications Times are shown in EDT. Scheduled Medication Order 10/07/2017 10/08/2017 10/09/2017 cefTRIAXone (ROCEPHIN) injection 1,000 mg (COMPLETED) 1,000 mg, Intramuscular, Once, On Sun10/09/17 at 1636, For 1 dose, Caution: Look alike/sound alike drug alert, Indications: Skin and Soft Tissue Infection 1637 (Given - Provid er: Citlaly Santillan RN - Comment: Patient reports that allergy to keflex is only a side effect and that he is fine with getting rocephin injection.) documented in this encounter Care Teams Store Warehouse Associate Relationship Specialty Start Date End Date Kinga Peace APRN [address] [address] PCP - General 05/03/15 documented as of this encounter
--- OUTSIDE RECORDS SUMMARY | 2024-03-02 13:02 | XMS_ITS | Encounter Summary ---
[facility] Address [address] [place] [address] Care Team Providers Care Dust Operator Name Role Phone Kinga Peace LESLIE Primary Care Provider Reason for Visit * Reason Comments Cough Onset 1 month Sore Throat Onset Sunday Generalized Body Aches Headache Encounter Details Date Type Department Care Team (Late st Contact Info) Description 03/29/2017 2:53 PM EST - 03/29/2017 3:15 PM EST Hospital Encounter [facility] - [address] [place] [address] Stephanie Montemayor V, DO 0 [facility] [address] [place] [address] Influenza A (Primary Dx) Discharge Disposition: Home or Self [...] Sign Reading Time Taken Comments Blood Pressure 144/78 03/29/2017 2:54 PM EST Pulse 110 03/29/2017 2:54 PM EST Temperature 38.8 ??C (101.9 ??F) 03/29/2017 2:[address] Respiratory Rate 16 03/29/2017 2:54 PM EST Oxygen Saturation 97% 03/29/2017 2:54 PM EST Inhaled Oxygen Concentration - - Weight 90.7 kg (200 lb) 03/29/2017 2:54 PM EST Height 182.9 cm (6') 03/29/2017 2:54 PM EST Body Mass Index 27.12 03/29/2017 2:54 PM EST documented in this encounter Medications at Time of Discharge oseltamivir (TAMIFLU) 75 MG capsuleIndication s:Influenza A Take 1 capsule by mouth 2 (Two) Times a Day for 5 days. 10 capsule 03/29/2017 04/03/2017 benzonatate (TESSALON) 200 MG capsuleIndication s:Influenza A Take 1 capsule by mouth 3 (Three) Times a Day As Needed for Cough. 15 capsule 03/29/2017 10/09/2017 documented as of this encounter ED Notes * Stephanie Montemayor DO - 03/29/2017 2:59 PM EST Subjective HPI Comments: Patient was on antibiotics for a cough 1 month ago (Amoxicillin). Patient is a 36 y.o. male presenting with fever. History provided by: Patient weather clerk used: No Fever Max temp prior to arrival: 101.9 degrees F Temp source: Tactile Onset quality: Sudden Duration: 2 days Timing: Constant Progression: Worsening Chronicity: New Relieved by: Acetaminophen Worsened by: Nothing Associated symptoms: chills, congestion, cough, myalgias, rhinorrhea and sore throat Associated symptoms: no ear pain, no rash and no vomiting Review of Systems Constitutional: Positive for chills and fever. HENT: Positive for congestion, rhinorrhea and sore throat. Negative for ear pain. Respiratory: Positive for cough. Negative for shortness of breath and wheezing. Gastrointestinal: Negative for abdominal pain and vomiting. Musculoskeletal: Positive for myalgias. Skin: Negative for rash. Objective Vitals: 03/29/17 1454 BP: 144/78 BP Location: Right arm Patient Position: Sitting Pulse: 110 Resp: 16 Temp: (!) 101.9 ??F (38.8 ??C) TempSrc: Temporal Artery SpO2: 97% Weight: 90.7 kg (200 lb) Height: 182.9 cm (72 ) Physical Exam Constitutional: He appears well-developed and well-nourished. HENT: Head: Normocephalic and atraumatic. Right Ear: Tympanic membrane, external ear and ear canal normal. Left Ear: Tympanic membrane, external ear and ear canal normal. Nose: Rhinorrhea present. Mouth/Throat: Oropharynx is clear and moist. Eyes: Conjunctivae and EOM are normal. Pupils are equal, round, and reactive to light. Neck: Normal range of motion. Neck supple. Cardiovascular: Normal rate, regular rhythm and normal heart sounds. Pulmonary/Chest: Effort normal and breath sounds normal. No respiratory distress. Abdominal: Soft. Bowel sounds are normal. There is no tenderness. Skin: No rash noted. Psychiatric: He has a normal mood and affect. His behavior is normal. Thought content normal. Nursing note and vitals reviewed. Procedures MDM Tylenol as needed Saline spray Fluids/rest Diagnoses that have been ruled out: None Diagnoses that are still under consideration: None Final diagnoses: Influenza A Medications administered for this visit: Medications acetaminophen (TYLENOL) tablet 325 mg (325 mg Oral Given 03/29/17 8908) Medication List START taking these medications benzonatate 200 MG capsule Commonly known as: TESSALON Take 1 capsule by mouth 3 (Three) Times a Day As Needed for Cough. oseltamivir 75 MG capsule Commonly known as: TAMIFLU Take 1 capsule by mouth 2 (Two) Times a Day for 5 days. Labs Reviewed POCT INFLUENZA A/B - Normal Patient was Influenza A positive Imaging Results: No orders to display No Follow-up on file. Stephanie Flor DO 03/29/17 1510 documented in this encounter Plan of Treatment Not on file documented as of this encounter Procedures Procedure Name Priority Date/Time Associated Diagnosis Comments POCT INFLUENZA A/B STAT 03/29/2017 3: 08 PM EST documented in this encounter Results * POCT Influenza A/B (03/29/2017 3:08 PM EST) Rapid Influenza A Ag pos [facility] Rapid Influenza B Ag neg [facility] Internal Control Passed Passed [facility] Lot Number [id number] [facility] Expiration Date 06/14/2019 [facility] Swab 03/29/2017 3:08 PM EST us Stephanie Ablina V, DO POINT OF CARE TEST O RDERABLES Final Result [facility]
[address] [place] [id number], documented in this encounter Visit Diagnoses Diagnosis Influenza A- Primary Influenza with other respiratory manifestations documented in this encounter Administered Medications Inactive Administered Medications - up to 3 most recent administrations Medication Order MAR Action Action Date Dose Rate Site acetaminophen (TYLENOL) tablet 325 mg 325 mg, Oral, Once, On Kaur 03/29/17 at 1508, For 1 dose, Do not exceed 4 grams of acetaminophen in a 24 hr period. If given for pain, use the following pain scale: Mild Pain = Pain Score of 1-3, CPOT 1-2 Moderate Pain = Pain Score of 4-6, CPOT 3-4 Severe Pain = Pain Score of 7-10, CPOT 5-8Indications:Influenza A Given 03/29/2017 3:08 PM EST 325 mg documented in this encounter Active and Recently Administered Medications Times are shown in EST. Scheduled Medication Order 03/27/2017 03/28/2017 03/29/2017 acetaminophen (TYLENOL) tablet 325 mg (COMPLETED) 325 mg, Oral, Once, On Kaur 18 at 1508, For 1 dose, Do not exceed 4 grams of acetaminophen in a 24 hr period. If given for pain, use the following pain scale: Mild Pain = Pain Score of 1-3, CPOT 1-2 Moderate Pain = Pain Score of 4-6, CPOT 3-4 Severe Pain = Pain Score of 7-10, CPOT 5-8 1508 (Given - Provid er: Katarina Wood RN) documented in this encounter Care Teams Dust Operator Relationship Specialty Start Date End Date Kinga Peace APRN [address] [facility] [address] [place] [address] PCP - General 05/03/15 documented as of this encounter
--- OUTSIDE RECORDS SUMMARY | 2024-03-02 13:02 | XMS_ITS | Clinical Summary ---
Author Organization [facility] Address [address] [place] [address] Care Team Providers Care Roofing Superintendent Name Role Phone CarlosKinga murray Hilton NELSON Primary Care Provider [phone] Allergies Active Allergy Reactions Criticality Noted Date Comments Cephalexin GI Intolerance 03/09/2016 diarrhea Medications No known medications Active Problems Problem Noted Date Diagnosed Date Arthritis 03/09/2016 Immunizations Name Administration Dates Next Due Fluzone Quad >6mos (Multi-dose) 02/02/2017 Family History 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 Relation Name Comments Arthritis Father Hyperlipidemia Father Pancreatic cancer Father Hypertension Maternal Grandfather Diabetes Maternal Grandmother Arthritis Mother Migraines Mother Migraines Other sibling Hypertension Paternal Grandfather Stroke Paternal Grandfather Relation Name Status Comments Father Maternal Grandfather Maternal Grandmother Mother Other sibling Alive Paternal Grandfather 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 Tobacco Use Types Packs/Day Years Used Date Smoking Tobacco: Former Comments:quit 1 year ago Alcohol Use Standard Drinks/Week Comments No 0 (1 standard drink = 0.6 oz pur e alcohol) Abuse Screen Answer Date Recorded Unsafe at Home or Work/School Not on file Feels Threatened by Someone? Not on file 11/2022 Does Anyone Keep You from Co ntacting Others or Doint Things Outside the Home? Not on file 01/01/2023 Physical Sign of Abuse Present Not on file 1 Housing Stability Answer Date Recorded Current Living Arrangements Not on file 11/2022 Potentially Unsafe Housing Conditions Not on wes e 01/01/2023 Family and Community Support Answer Niles e Recorded Help with Day-to-Day Activities Not on file 01/01/2023 Lonely or Isolated Not on file 01/01/2023 Employment Answer Date Recorded Do you want help finding or keeping work or a marisol b? Not on file 01/01/2023 Disabilities Answer Date Recorded Concentrating, Remembering, or Making Decisions Difficulty Not on file 01/01/2023 Doing Errands Independently Difficulty Not on fi le 01/01/2023 Education Answer Date Recorded Help with school or training? Not on file Preferred Language Not on file 01/01/2023 Sex and Gender Information Value Date Recorded Sex Assigned at Not on file Legal Sex Male 10:25 AM EDT Gender Identity Not on file Sexual Orientation Not on file Last Filed Vital Signs Vital Sign Reading Time Taken Comments Blood Pressure 136/87 10/09/2017 4:16 PM EDT Pulse 97 10/09/2017 4:16 PM EDT Temperature 37.1 ??C (98.7 ??F) 10/09/2017 4:16 PM ED T Respiratory Rate 18 10/09/2017 4:16 PM EDT Oxygen Saturation 99% 10/09/2017 4:16 PM EDT Inhaled Oxygen Concentration - - Weight 93 kg (205 lb) 10/09/2017 4:16 PM EDT Height 182.9 cm (6') 03/29/2017 2:54 PM EST Body Mass Index 27.8 03/29/2017 2:54 PM EST Plan of Treatment Health Maintenance Due Date Last Done Comments COLOGUARD 1980 COLON CANCER SCREENING 5 YEA R SIGMOIDOSCOPY 1980 COLONOSCOPY [address]CER SCREENING [address] COLONOGRAPHY 1980 FECAL OCCULT BLOOD TEST 1980 FIT Testing (1 year) 1978 TDAP/TD VACCINES (1 - Tdap) 1997 ANNUAL PHYSICAL 03/09/2016 HEPATITIS C SCREENING 03/09/2016 INFLUENZA VACCINE 09/24/2023 02/02/2017 COVID-19 Vaccine ( - 2023-2 5 season) 2023 Pneumococcal Vaccine 0-64 Aged Out No longer eligible based on patient's age to complete this topic Additional Health Concerns Infection Onset Date Last Indicated 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
--- OUTSIDE RECORDS SUMMARY | 2024-03-02 13:02 | XMS_ITS | Encounter Summary ---
Author Organization [facility] Address [address] [place] [address] Care Team Providers Care Board Stacker Name Role Phone Kinga Peace FINANCIAL SALES MANAGER Primary Care Provider [phone] Encounter Details Date Type Department Care Team (Late st Contact Info) Description 10/13/2017 Telephone [facility] URGENT CARE - [address] [place] [address] Chacha Cisneros MA 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 Tobacco Use Types Packs/Day [...] encounter Miscellaneous Notes * Telephone Encounter - Chacha Cisneros MA - 10/13/2017 11:59 AM EDT Pt was informed of results. States he is better. documented in this encounter Plan of Treatment Not on file documented as of this encounter Visit Diagnoses Not on filedocumented in this encounter Additional Health Concerns Infection Onset Date Last Indicated Resolved Time MRSA 10/09/2017 10/09/2017 documented as of this encounter Care Teams Board Stacker Relationship Specialty Start Date End Date Kinga Peace APRN [address] [facility] [address] [place] [address] PCP - General 05/03/15 documented as of this encounter
--- OUTSIDE RECORDS SUMMARY | 2024-03-02 13:02 | XMS_ITS | Encounter Summary ---
[facility] Organization [facility] Address [address] [place] [address] Care Team Providers Care [employer] Field Supervisor Name Role Phone Kinga Peace APRN Primary Care Provider [phone] Encounter Details Date Type Department Care Team (Late st Contact Info) Description 10/13/2017 Telephone [facility] URGENT CARE - [address] [place] [address] Raeann Gonzalez RN 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 Tobacco Use Types Packs/Day Years [...] encounter Miscellaneous Notes * Telephone Encounter - Raeann Gonzalez RN - 10/13/2017 10:41 AM EDT Left voice mail to call back documented in this encounter Plan of Treatment Not on file documented as of this encounter Visit Diagnoses Not on filedocumented in this encounter Additional Health Concerns Infection Onset Date Last Indicated Resolved Time MRSA 10/09/2017 10/09/2017 documented as of this encounter Care Teams [employer] Field Supervisor Relationship Specialty Start Date End Date Kinga Peace APRN [address] [facility] [address] [place] [address] PCP - General 05/03/15 documented as of this encounter
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
--- OUTSIDE RECORDS SUMMARY | 2024-03-02 13:03 | XMS_ITS | Encounter Summary ---
Author Organization [facility] Address [address] [place] [address] Care Team Providers Care Senior Drafter Name Role Phone Kinga Peace CUSTOMER SUPPORT COORDINATOR Primary Care Provider [phone] Encounter Details Date Type Department Care Team (Late st Contact Info) Description 06/10/2015 Office Visit Converted [facility] INTERNAL MEDICINE [address] [place] [address] Kinga Peace, CUSTOMER SUPPORT COORDINATOR [address] [id number] 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 Tobacco Use Types Packs/Day Years Used Date Smoking Tobacco: Never Assessed Sex and Gender Information Value Date Recorded Sex Assigned at Not on file Legal Sex Male 10:25 AM EDT Gender Identity Not on file Sexual Orientation Not on file documented as of this encounter Miscellaneous Notes * Letter - Kinga Peace, CUSTOMER SUPPORT COORDINATOR - 06/10/2015 1:00 PM EDT Dear BOAZ MANN, Thank you for choosing [facility]. Your health is of our foremost concern, which is why we want to inform you that you recently missed your appointment on 06/10/2015 at 1:00PM with Kinga Peace. We understand unexpected circumstances arise; however, anytime you miss your appointment we are unable to provide you appropriate care. In addition, each appointment missed could have been used to provide care for others. We ask that you call at least 24 hours in advance to cancel or reschedule an appointment. We would like to take this opportunity to remind you of our policy stating patients whomiss three or more appointments without cancelling or rescheduling 24 hours in advance of the appointment may be subject to dismissal from the practice. Please call the number above to reschedule your appointment. If there are reasons that make it difficult for you to keep the appointments, please call and let us know. If possible, we will try to facilitate. Again, we value you as a patient and thank you for allowing [facility] to providecare for all of your healthcare needs. Sincerely, [facility] documented in this encounter Plan of Treatment Not on file documented as of this encounter Visit Diagnoses Not on filedocumented in this encounter Care Teams Senior Drafter Relationship Specialty Start Date End Date Kinga Peace APRN [address] [address] PCP - General 05/03/15 documented as of this encounter
--- OUTSIDE RECORDS SUMMARY | 2024-03-02 13:03 | XMS_ITS | Encounter Summary ---
[facility] Organization [facility] Address [address] [place] [address] Care Team Providers Care Substance Abuse Counselor Name Role Phone Kinga Peace TOOL MACHINE SHOP SUPERVISOR Primary Care Provider [phone] Reason for Visit * Reason Comments Nasal Congestion x 2 days Encounter Details Date Type Department Care Team (Late st Contact Info) Description 02/02/2017 2:15 PM EST Office Visit [facility] [address] [place] [address] Kinga Peace, TOOL MACHINE SHOP SUPERVISOR [address] [id number] Pharyngitis, unspecified etiology (Primary Dx) 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 Tobacco Use Types [...] Sign Reading Time Taken Comments Blood Pressure 124/76 02/02/2017 2:38 PM EST Pulse 86 02/02/2017 2:38 PM EST Temperature - - Respiratory Rate - - Oxygen Saturation 99% 02/02/2017 2:38 PM EST Inhaled Oxygen Concentration - - Weight 92.5 kg (204 lb) 02/02/2017 2:38 PM EST Height 182.9 cm (6') 02/02/2017 2:38 PM EST Body Mass Index 27.67 02/02/2017 2:38 PM EST documented in this encounter Progress Notes * Kinga Peace, LESLIE - 02/02/2017 2:15 PM EST Subjective Nasal Congestion ( x 2 days) Preet Shell is a 36 y.o. male. Allergies Allergen Reactions ??? Keflex [Cephalexin] History of Present Illness Sore throat started yesterday , sinuses have been drainage , blowing nose a lot, very thick , no cough, no fever/chills, has tried tylenol, nyquil w/o relief The following portions of the patient's history were reviewed and updated as appropriate: allergies, past family history, past surgical history and problem list. Review of Systems Constitutional: Negative for chills, fatigue and fever. HENT: Positive for rhinorrhea and sore throat. All other systems reviewed and are negative. Objective Physical Exam Constitutional: He is oriented to person, place, and time. He appears well- developed and well-nourished. HENT: Head: Normocephalic and atraumatic. Right Ear: External ear normal. lg amt pnd Eyes: Conjunctivae are normal. Cardiovascular: Normal rate and regular rhythm. Pulmonary/Chest: Effort normal and breath sounds normal. Lymphadenopathy: He has no cervical adenopathy. Neurological: He is alert and oriented to person, place, and time. Skin: Skin is warm and dry. Psychiatric: He has a normal mood and affect. His behavior is normal. Judgment and thought content normal. Nursing note and vitals reviewed. BP 124/76 Pulse 86 Ht 72 (182.9 cm) Wt 204 lb (92.5 kg) SpO2 99% BMI 27.67 kg/m2 Assessment/Plan Problem List Items Addressed This Visit None Visit Diagnoses Pharyngitis, unspecified etiology - Primary Relevant Orders POC Rapid Strep A (Completed) Warm salt water gargles, tylenol, ibuprofen prn Results for orders placed or performed in visit on 02/02/17 POC Rapid Strep A Result Value Ref Range Rapid Strep A Screen Negative Negative, VALID, INVALID, Not Performed Internal Control Passed Passed Lot Number [id number] Expiration Date 05/23/2018 documented in this encounter Plan of Treatment Not on file documented as of this encounter Procedures Procedure Name Priority Date/Time Associated Diagnosis Comments POCT RAPID STREP A Routine 02/02/2017 3: 57 PM EST Pharyngitis, unspecified etiology documented in this encounter Results * POC Rapid Strep A (02/02/2017 3:57 PM EST) Rapid Strep A Screen Negative Negative, VALID, INVALID, Not Performed [facility] Internal Control Passed Passed [facility] Lot Number [id number] [facility] Expiration Date 05/23/2018 [facility] Swab 02/02/2017 3:57 PM EST us Kinga Peace TOOL MACHINE SHOP SUPERVISOR POINT OF CARE TEST ORDERABL ES Final Result [facility]
[address] [place] [id number], documented in this encounter Visit Diagnoses Diagnosis Pharyngitis, unspecified etiology- Primary documented in this encounter Care Teams Substance Abuse Counselor Relationship Specialty Start Date End Date Kinga Peace, TOOL MACHINE SHOP SUPERVISOR [address] [address] PCP - General 05/03/15 documented as of this encounter
--- OUTSIDE RECORDS SUMMARY | 2024-03-02 13:03 | XMS_ITS | Encounter Summary ---
[facility] Address [address] [place] [address] Care Team Providers Care Senior Recruitment Consultant Name Role Phone Kinga Peace EXPERIENCE DESIGN DIRECTOR Primary Care Provider [phone] Encounter Details Date Type Department Care Team (Late st Contact Info) Description 05/03/2015 Office Visit Converted [facility] [address] [place] [address] Kinga Peace, EXPERIENCE DESIGN DIRECTOR [address] [place] [address] 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 Tobacco Use Types Packs/Day Years Used Date Smoking Tobacco: Never Assessed Sex and Gender Information Value Date Recorded Sex Assigned at Not on file Legal Sex Male 10:25 AM EDT Gender Identity Not on file Sexual Orientation Not on file documented as of this encounter Last Filed Vital Signs Vital Sign Reading Time Taken Comments Blood Pressure 136/94 05/03/2015 2:30 PM EST Pulse 100 05/03/2015 2:30 PM EST Temperature - - Respiratory Rate 18 05/03/2015 2:30 PM EST Oxygen Saturation - - Inhaled Oxygen Concentration - - Weight 76.4 kg (168 lb 5.1 oz) 05/03/2015 2:30 P M EST Height 182.9 cm (6') 05/03/2015 2:30 PM EST Body Mass Index 22.83 05/03/2015 2:30 PM EST documented in this encounter Progress Notes * Kinga Peace, EXPERIENCE DESIGN DIRECTOR - 05/03/2015 2:15 PM EST Chief Complaint New patient- complains of a red, itchy, burning rash that began under the left arm pit this past Sunday. It has spread down his arms, across his chest, up his neck, and some on his hips. Patient states it montiel like a sun burn. Has tried using Benadryl. History of Present Illness HPI: C/o rash on bilateral arm pits, neck, trunk, arms, and right hip. Began 2 days ago, noticed after using a new deodorant that caused burning so he washed it off. Rash developed under left axilla and has gotten progressively worse over the past 2 days. C/o itching and constant burning sensation.Taking Benadryl without any relief. Denies any new medications, drug use, new lotions or soaps. No soa. Review of Systems Complete-Male: Constitutional: negative. Cardiovascular: negative. Integumentary and Breasts: as noted in HPI. Past 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 ?? History of arthritis (V13.4) (Z87.39) ?? History of migraine (V12.49) (Z86.69) Surgical History ?? History of Shoulder Surgery ?? 4 surgeries on right shoulder, [id number] 3 surgeries on left shoulder, [id number] Family History ?? Family history of arthritis (V17.7) (Z82.61) ?? Family history of migraine headaches (V17.2) (Z82.0) ?? Family history of arthritis (V17.7) (Z82.61) ?? Family history of pancreatic cancer (V16.0) (Z80.0) ?? Family history of High cholesterol ?? Family history of migraine headaches (V17.2) (Z82.0) ?? Family history of diabetes mellitus (V18.0) (Z83.3) ?? Family history of hypertension (V17.49) (Z82.49) ?? Family history of cerebrovascular accident (CVA) (V17.1) (Z82.3) ?? Family history of hypertension (V17.49) (Z82.49) 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 ? Former cigarette smoker (V15.82) (Z87.891) ?? quit 1 year ago ?? No alcohol use Current Meds Medication Name Instruction Metoprolol Tartrate 25 MG Oral Tablet Take 1 tablet twice daily Allergies 1. Keflex CAPS Vitals Signs [Data Includes: Current Encounter] Heart Rate: 100 Respiration: 18 Systolic: 136 Diastolic: 94 Height: 6 ft Weight: 168 lb 5 oz BMI Calculated: 22.83 BSA Calculated: 1.98 Physical Exam BH Complete Multi-System Exam: Constitutional General appearance: No acute distress, well appearing and well nourished. Ears, Nose, Mouth, and Throat Oropharynx: Normal with no erythema, edema, exudate or lesions. Pulmonary Respiratory effort: No increased work of breathing or signs of respiratory distress. Skin Skin and subcutaneous tissue: Abnormal. (Macular, papular, erythematous rash on bilateral axilla, neck, trunk, medial aspect of bilateral arms, and right hip) Assessment 1. Dermatitis (692.9) (L30.9) Plan Dermatitis ?? Start: AC 10 MG Oral Tablet; one po qd ?? Start: 20 MG Oral Tablet; 3 tabs days 1, 2, 3 , 2 tabs days 4, 5, 6, 1 tab days 7,8,9,10 ?? Start: Allergy 10 MG Oral Capsule; one po qd ?? Administered: Acetate 40 MG/ML Injection Suspension (Depo-Medrol) End of Encounter Meds Medication Name Instruction Metoprolol Tartrate 25 MG Oral Tablet Take 1 tablet twice daily Pepcid AC 10 MG Oral Tablet one po qd PredniSONE 20 MG Oral Tablet 3 tabs days 1, 2, 3 , 2 tabs days 4, 5, 6, 1 tab days 7,8,9,10 ZyrTEC Allergy 10 MG Oral Capsule one po qd Discussion/Summary Discussion Summary: Steroid shot given in office. Prescription given to patient for Pepcid, prednisone, and Zyrtec. Instructed to avoid hot showers. Can use otc steroid cream. RTC if symptoms not improved in 48 hours. Signatures Electronically signed by : Juliana Scott, ; May 03 2015 4:17PM EST (Co-author) Electronically signed by : KERMIT Delatorre; May 03 2015 4:22PM EST (Author) documented in this encounter Plan of Treatment Not on file documented as of this encounter Visit Diagnoses Not on filedocumented in this encounter Care Teams Senior Recruitment Consultant Relationship Specialty Start Date End Date Kinga Peace APRN [address] [address] PCP - General 05/03/15 documented as of this encounter
--- NOTE | 2024-03-02 13:07 | XR_ITS ---
PROCEDURE INFORMATION: Exam: XR Left Hand Exam date and time: 03/02/2024 1:05 PM Age: 43 years old Clinical indication: Injury or trauma; Other: Smashed thumb betweeen a tractor and hydraulic cy TECHNIQUE: Imaging protocol: Radiologic exam of the left hand. Views: 3 or more views. COMPARISON: No relevant prior studies available. FINDINGS: Bones/joints: Lucency in the distal aspect of the distal phalanx of the thumb may represent nondisplaced represent tuft fracture There is no evidence of malalignment or dislocation. Soft tissues: Soft tissue swelling of the thumb IMPRESSION: Lucency in the distal aspect of the distal phalanx of the thumb may represent nondisplaced represent tuft fracture
[2024-03-02 13:20] VITALS: BP 178/104; PULSE 97; RESP 18; TEMP 36.8; O2SAT 99; BMI 29.9
--- NOTE | 2024-03-02 13:35 | EXP.UTC ---
Discharge Plan Disposition Patient Disposition: Home, Self-Care Condition: Good Prescriptions Prescriptions: No Action No Known Home Medications Referrals Follow up/Referrals: Geoffrey Duron [Primary Care Provider] - See instructions Activity Restrictions/Add. Instructions Additional Instructions/Restrictions: rest Ice with cold pack for 20 minutes remove may repeat for comfort every hour splint for support and swelling Be sure not too tight but not to lose either Elevate with arm above your heart as much as possible to help reduce swelling and therefore pain Ibuprofen every 6 hours as needed for pain or inflammation. If needs something more you can take Tylenol every 4 hours as needed as long as her primary care has told he was okayed for you to take both. Follow-up immediately if new or worsening symptoms or no noticeable improvement over the next 3-5 days. call ortho on Sunday for an appointment Clinical Impressions Clinical Impression: Closed fracture of tuft of distal phalanx of finger Instructions Patient Instructions: DI for Finger Fracture Print Language Print Language: German Discharge ED Provider: Mohini ([facility])Cait [facility] HPI General Stated complaint: AO left thumb pain Mode of Arrival: Ambulatory Source of Information: Patient Limitations: No Limitations Time Seen by Provider: 03/02/24 13:34 Description of Symptoms (Recalled from Triage Doc. by RN): PATIENT STATES HE GOT HIS LEFT THUMB CAUGHT BETWEEN A TRACTOR AND A HYDRAULIC CYLINDER THIS AFTERNOON HEENT Symptoms (Recalled from RN notes): No Resp Symptoms (Recalled from RN notes): No Skin Symptoms (Recalled from RN notes): No MS Symptoms (Recalled from RN notes): Yes Functional Status (Recalled from RN notes): WNL History of Present Illness Provider Complaint: 43-year-old male presents for left thumb pain. Patient states he got his hand caught between the tractor and the hydraulic cylinder this afternoon. Related Data Home Medications ?Medication ?Instructions ?Recorded ?Confirmed No Known Home Medications 03/02/24 03/02/24 Allergies Allergy/AdvReac Type Severity Reaction Status Date / Time cephalexin (From Keflex) AdvReac Unknown Diarrhea Verified 08/19/23 10:42 Worker's Comp Is this a Worker's Comp case?: No [facility] Disclaimer: The information contained in this section may have been updated after the patient was seen, as this information can be updated by other users. 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 JACK MAN) Smoking Status: Current every day smoker alcohol intake: never current occupational status: employed Travel in the last 8 weeks: None household members: family housing: house ROS Obtained: Yes Systems reviewed as appropriate & no additional complaints except as documented Physical Exam General General appearance: alert and in no apparent distress Respiratory Respiratory exam: Present normal lung sounds bilaterally Cardiovascular Cardiovascular exam: Present regular rate and normal rhythm Expanded Upper Extremity Exam Left: Hand exam: Present tenderness and swelling Hand L/R back image: 1. tenderness, swelling Neurological Exam Neurological exam: Present alert and oriented X3 Skin Skin exam: Present warm and intact Lymphatic Lymphatic Findings: no adenopathy Medical Decision Making Medical Records Medical records reviewed: Yes I reviewed the patient's medical records. Screening: Per USPSTF and CDC recommendations, given the prevalence of disease in our region, it is our hospital?s policy to screen for HIV and viral Hepatitis for all patients aged 18 and over and those with ongoing risk factors. Rajesh Inquiry Pt receiving controlled substance: No Vital Signs: 03/02/24 13:20 Temperature 98.2 F Temperature Source Oral Pulse Rate [Right Brachial] 97 H Respiratory Rate 18 Blood Pressure [Right Arm] 178/104 H Blood Pressure Mean [Right Arm] 128 Blood Pressure Source [Right Arm] Automatic Cuff Blood Pressure Position [Right Arm] Sitting 02 Sat by Pulse Oximetry 99 Oxygen Delivery Method Room Air Orders (Tests/Meds): ORDERS Category Date Time Status XR hand LT min 3V Stat Exams 03/02/24 13:07 Taken Radiology Data #1: Image(s): Finger(s)/Thumb Image Reviewed: Yes I have reviewed radiologist's interpretation Preliminary Findings: Abnormal Tuft fracture
[2024-03-02 14:35] VITALS: BP 178/104; PULSE 97; RESP 18; TEMP 36.8; O2SAT 99
== END 2024-03-02 14:37 | disposition home or self-care (01) ==
PROVIDERS: Emergency Provider Nurse Practitioner Family; PCP Internal Medicine
DX: S62.525A Nondisplaced fracture of distal phalanx of left thumb, initial encounter for closed fracture (principal); W23.0XXA Caught, crushed, jammed, or pinched between moving objects, initial encounter
CPT/HCPCS: 29125; 73130; 99214; G0381

== ENCOUNTER 2024-12-08 11:10 | Outpatient (CLI) | payer BC, OTHER, SELFPAY ==
--- OUTSIDE RECORDS SUMMARY | 2024-12-08 11:14 | XMS_ITS | Clinical Summary ---
Author Organization [facility] Address [address] [place] [address] Care Team Providers Care Tank Tester Name Role Phone Kinga Peace Hilton NELSON Primary Care Provider [phone] Allergies Active Allergy Reactions Criticality Noted Date Comments Cephalexin GI Intolerance 03/09/2016 diarrhea Medications No known medications Active Problems Problem Noted Date Diagnosed Date Arthritis 03/09/2016 Immunizations Immunization Administration Dates Next Due Fluzone Quad >6mos [...] 97 10/09/2017 4:16 PM EDT Temperature 37.1 C (98.7 F) 10/09/2017 4:16 PM EDT Respiratory Rate 18 10/09/2017 4:16 PM EDT Oxygen Saturation 99% 10/09/2017 4:16 PM EDT Inhaled Oxygen Concentration - - Weight 93 kg (205 lb) 10/09/2017 4:16 PM EDT Height 182.9 cm (6') 03/29/2017 2:54 PM EST Body Mass Index 27.8 03/29/2017 2:54 PM EST Plan of Treatment Health Maintenance Due Date Last Done Comments TDAP/TD VACCINES (1 - Tdap) 1997 ANNUAL PHYSICAL 03/09/2016 HEPATITIS C SCREENING 03/09/2016 COLOGUARD 11/24/2023 COLON CANCER SCREENING 5 YEA R SIGMOIDOSCOPY 11/24/2023 COLONOSCOPY 11/24/2023 COLORECTAL CANCER SCREENING 11/24/2023 CT COLONOGRAPHY 11/24/2023 FECAL OCCULT BLOOD TEST 11/24/2023 FIT Testing (1 year) 11/24/2023 COVID-19 Vaccine ( - 2023-2 5 season) 2024 INFLUENZA VACCINE 12/24/2024 02/02/2017 Pneumococcal Vaccine 0-49 Aged Out No longer eligible based on patient's age to complete this topic Additional Health Concerns Infection Onset Date 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
--- NOTE | 2024-12-08 11:16 | XR_ITS ---
FINAL REPORT CLINICAL HISTORY: stepped off a forklift wrong last (12/04) and has had bad right hip pain ever since FINDINGS: RIGHT HIP Three views of the right hip demonstrate no acute fracture or dislocation. The joint spaces appear normal. The visualized bony structures are well aligned. No soft tissue abnormality is seen. IMPRESSION: No acute bony abnormality. Reviewed, Interpreted and Dictated by Dexter Herrera MD Transcribed by Meena Parmar Authenticated and [facility]
== END 2024-12-08 23:59 | disposition home or self-care (01) ==
LOC: RAD 11:12
PROVIDERS: PCP Internal Medicine; Visit Provider Internal Medicine
DX: R10.31 Right lower quadrant pain (principal)
CPT/HCPCS: 73502